=== PATIENT | male | born 1995 | race Caucasian/White ===

== ENCOUNTER 2019-12-17 23:24 | Emergency (ER) | payer OTHER ==
[2019-12-18] MEDS ORDERED: LIDOCAINE 1% INJ-PF (10 MG/ML) 30 ML SDV INJ ONE (00:12)
--- NOTE | 2019-12-18 00:14 | ER Document Report ---
HPI - HPI Time Seen by Provider: 12/18/19 00:09 Pain Level: 2 Context: Patient is a 24-year-old male who presents to the emergency department with a laceration to his dorsal right hand at the base of his second digit. Patient is right-handed. States that he is up-to-date on his tetanus vaccine. Patient states that he was washing the dishes and a glass broke and cut his hand. Patient is able to move his digits with no difficulty. - CONSTITUTIONAL Constitutional: DENIES: Fever, Chills - GASTROINTESTINAL Gastrointestinal: DENIES: Abdominal Pain, Nausea, Patient vomiting - MUSCULOSKELETAL Musculoskeletal: REPORTS: Extremity pain - Rt dorsal hand at Laceration - DERM Skin Color: Normal Skin Problems: Laceration - Dorsal right hand Past Medical History - Social History Smoking Status: Never Smoker Frequency of alcohol use: Rare Drug Abuse: None Family History: Reviewed & Not Pertinent Patient has suicidal ideation: No Patient has homicidal ideation: No Vertical Provider Document - CONSTITUTIONAL Agree With Documented VS: Yes Exam Limitations: No Limitations General Appearance: No Apparent Distress - HEENT HEENT: Atraumatic, Normocephalic, PERRLA - NECK Neck: Normal Inspection - RESPIRATORY Respiratory: No Respiratory Distress - CARDIOVASCULAR Cardiovascular: Regular Rate, Regular Rhythm Pulses: Normal: Radial - MUSCULOSKELETAL/EXTREMETIES Musculoskeletal/Extremeties: FROM, Tender - at laceration - NEURO Level of Consciousness: Awake, Alert, Appropriate Motor/Sensory: No Motor Deficit, No Sensory Deficit - DERM Integumentary: Warm, Dry, Laceration - Dorsal left hand Course - Re-evaluation Re-evalutation: 12/18/19 02:17 Differential diagnosis includes but is not limited to: Laceration, foreign body, arterial injury, nerve injury, fracture or tendon injury. Patient was able to flex and extend her digits against resistance distal to the laceration with no apparent tendon injury, CMS intact distal to the injury with no evidence of nerve damage, bleeding was well-controlled in the emergency department. X- ray was obtained to rule out foreign body, this was negative. Wound was repaired. See procedure note. - Vital Signs Vital signs: Temp Pulse Resp BP Pulse Ox 98.7 F 72 16 144/76 H 99 12/17/19 23:29 12/17/19 23:29 12/17/19 23:29 12/17/19 23:29 12/17/19 23:29 Procedures - Laceration/Wound Repair Left Dorsal Hand Wound length (cm): 5 Wound's Depth, Shape: Irregular, Flap Laceration pre-procedure: Sterile PPE donned Anesthetic type: 1% Lidocaine Volume Anesthetic (mLs): 6 Wound explored: Clean, No foreign body removed Irrigated w/ Saline (mLs): 50 Wound Repaired With: Sutures Suture Size/Type: 5:0, Nylon Number of Sutures: 6 Post-procedure wound care: Sterile dressing applied Post-procedure NV exam normal: Yes Complications: No Hands back picture: 1 - L shaped laceration Discharge - Discharge Clinical Impression: Laceration of right hand Qualifiers: Encounter type: initial encounter Foreign body presence: without foreign body Qualified Code(s): S61.411A - Laceration without foreign body of right hand, initial encounter Condition: Stable Disposition: HOME, SELF-CARE Instructions: Antibiotic Ointment Protection ([facility]), Laceration Care ([facility]), Prophylactic Antibiotic ([facility]), Soap Cleansing ([facility]) Additional Instructions: Please return to your primary doctor, the ED, or an urgent care in 7 days for suture removal. Return immediately if you develop spreading redness around the wound, pus from the wound, worsening pain, or a fever of >100.4. Keep the area clean and dry. Wash gently with soap and water twice daily and cover with antibiotic ointment. Take the antibiotic to prevent infection. Prescriptions: Cephalexin Monohydrate [Keflex 500 mg Capsule] 500 mg PO Q6H 5 Days #20 capsule
[2019-12-18 02:36] VITALS: BP 140/70
== END 2019-12-18 02:36 | disposition home or self-care (01) ==
LOC: ER 23:24
DX: S61.411A Laceration without foreign body of right hand, initial encounter (principal); W25.XXXA Contact with sharp glass, initial encounter; Y93.G1 Activity, food preparation and clean up; Y92.009 Unspecified place in unspecified non-institutional (private) residence as the place of occurrence of the external cause
CPT/HCPCS: 99282; 12002; J3490